=== PATIENT | female | born 1995 | race Caucasian/White ===

== ENCOUNTER 2018-03-16 04:07 | Emergency (ER) | payer OTHER ==
[~2018-03-16] VITALS: Ht 162.6 cm; Wt 58.1 kg
[~2018-03-16 04:07] MED LIST: IBUP600 PO; IBUP800 PO; MEDR150I IM; Norco 5-325 Ta1 EACH PO; OXYM.05NI
== END 2018-03-16 04:53 | disposition home or self-care (01) ==
LOC: ER 04:07
DX: K08.89 Other specified disorders of teeth and supporting structures (principal); Z79.899 Other long term (current) drug therapy; F17.200 Nicotine dependence, unspecified, uncomplicated
CPT/HCPCS: 96372; 99282-25; J1885